=== PATIENT | male | born 1965 | race Caucasian/White ===

== ENCOUNTER 2016-11-24 19:20 | Emergency (ER) | payer OTHER ==
[~2016-11-24] VITALS: Ht 172.7 cm; Wt 81.6 kg
[2016-11-24 19:30] VITALS: BP 133/73
--- NOTE | 2016-11-24 20:04 | PHYS DOC ---
General Chief Complaint: FINGER INJURY Stated Complaint: RT INDEX FINGER SMASHED Time Seen by MD: 19:54 Source: patient Problems: History of Present Illness Initial Comments Patient here for right ring finger injury. Patient was lifting weights earlier today when he smashed the tip of his right ring finger between 2 weights. 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 He's noted swelling pain and discomfort with some numbness in the distal aspect of the right ring finger. He says he can move a, albeit with pain , especially so when he tries to flex the DIP joint. There is no other injuries noted or reported at this time. Patient's really done nothing for this prior to arrival in the ER. He notes no other increasing or decreasing factors. Patient' s past medical history is otherwise unremarkable. He is a nonsmoker and an occasional social user of ethanol. He thinks his tetanus is up-to-date. Allergies: Coded Allergies: No Known Drug Allergies (Unverified , 11/24/16) Past Medical History Medical History: no pertinent history Social History Smoker: non-smoker Alcohol: occasionally Review of Systems Constitutional: no symptoms reported Musculoskeletal: see HPI Skin: no symptoms reported Psychiatric/Neurological: no symptoms reported Physical Exam General Appearance: WD/WN, no apparent distress Extremities: swelling, other Neurologic/Psychiatric: no motor/sensory deficits, alert, normal mood/affect Skin: warm/dry Comments Generally this well-developed well-nourished male in no acute distress. Vitals are as noted. Pertinent findings on physical exam shows the patient to have a grossly swollen and ecchymotic pad of the right ring finger. There is a very minimal subungual hematoma noted under the nail of the index finger as well. The areas tender. He does have sensation. He does have refill. Swelling is considerably less over the middle phalanx and essentially absent by the proximal phalanx. He is able flex and extend at the PIP joint without difficulty with 5 over 5 strength. He does have pain on flexion and extension of the DIP joint with discomfort. There is no red streaks going up the finger. There is a small superficial linear abrasions over the pad of the digit as well. The hand itself is otherwise clear and there is no other injuries noted. Remainder of physical exam is clinically unremarkable. Orders, Labs, Meds Old charts note no prior ER visits within the current system. X-rays of the right hand show a tuft fracture of the distal phalanx of the right ring finger per the emergency physician. 2030 Patient resting comfortably in the ED. Discussed with them most likely cause of his discomfort is related to the tuft fracture distal phalanx. I indicated this is really a conservative treatment, that will not require surgery or other intervention. We'll go ahead and put a splint on his finger for now. I advised on home care including rest, ice, elevation, and that he can probably follow this up with primary care. We'll go and write appropriate prescriptions for pain. He does have some slight abrasions, superficial lacerations over the pad, and so technically in the presence of a fracture we need to consider the possibility of an open fracture. I'll give him started on some antibiotics accordingly. He voices understanding need to follow up with primary care or to return the ER sooner as worsening anyway. He looks well, in no acute distress, okay for discharge home at this time. MIGUEL ÁNGEL MORROW MD Nov 24, 2016 20:04
[2016-11-24] MEDS ORDERED: HYDROCODONE/APAP 7.5/325MG TABLET. PO ONE (21:30)
[2016-11-24] MEDS ORDERED: CEPHALEXIN 500 MG CAPSULE PO ONE (21:30)
--- NOTE | 2016-11-25 08:15 | RAD ---
Right ring finger, 3 views, 11/24/2016: History: Crush injury, contusion There is a fracture of the distal phalanx of the ring finger. It involves primarily the terminal tuft without significant displacement. The fracture appears slightly comminuted. The DIP joint is uninvolved. The proximal and middle phalanges are unremarkable. IMPRESSION: Acute fracture of the terminal tuft of the distal phalanx.
== END 2016-11-24 21:35 | disposition home or self-care (01) ==
LOC: ER 19:20
DX: S62.634A Displaced fracture of distal phalanx of right ring finger, initial encounter for closed fracture (principal); W23.0XXA Caught, crushed, jammed, or pinched between moving objects, initial encounter; Y93.89 Activity, other specified; Y99.8 Other external cause status; Y92.89 Other specified places as the place of occurrence of the external cause
CPT/HCPCS: 29130; 73140; 99284-25